=== PATIENT | male | born 1980 | race Caucasian/White ===

== ENCOUNTER 2024-09-26 18:02 | Emergency (ER) | payer BC, MEDICAID ==
[~2024-09-26] VITALS: Ht 167.6 cm; Wt 91.0 kg
[~2024-09-26 18:02] MED LIST: CIPR250S3 MT; IBUP-2029 MT; METR-354 MT; METR375C7 MT; MIRT-144 MT; PROT40 MT; TRAZ-251 MT
[2024-09-26 18:29] VITALS: BP 145/85; TEMP 36.7; O2SAT 97
[2024-09-26 18:30] VITALS: PULSE 86; RESP 18; O2SAT 99
[2024-09-26 20:10] LABS: BASOPHILS % 0.4 % (0.0-2.0); EOSINOPHILS % 0.7 % (0.0-5.0); HEMATOCRIT. 42.8 % (42.0-52.0); HEMOGLOBIN. 13.7 g/dL (14.0-18.0); LYMPHOCYTES % 12.2 % (20.0-50.0); MEAN CORPUSCULAR HEMOGLOBIN 27.8 pg (28.0-32.0); MEAN CORPUSCULAR HGB CONC 31.9 g/dL (31.0-37.0); MEAN PLATELET VOLUME 7.8 fl (7.4-10.4); MONOCYTES % 4.4 % (2.0-8.0); NEUTROPHILS % 82.3 % (40.0-76.0); PLATELET 265 x1000/uL (130-400); RED BLOOD CELL COUNT 4.92 mill/uL (4.7-6.1); RED CELL DISTRIBUTION WIDTH 14.3 % (11.6-14.6); WHITE BLOOD COUNT 13.3 x1000/uL (4.5-11.0)
[2024-09-26 20:17] LABS: CHLORIDE 104 mEq/L (98-107); POTASSIUM 3.6 mEq/L (3.5-5.1); SODIUM 142 mEq/L (136-145)
[2024-09-26 20:18] LABS: CALCIUM 9.6 mg/dL (8.7-10.4); CARBON DIOXIDE 27 mEq/L (21-32)
[2024-09-26 20:23] LABS: CREATININE 0.8 mg/dL (0.6-1.3); GLUCOSE 122 mg/dL (70-105); UREA NITROGEN BLOOD 7 mg/dL (9-23)
[2024-09-27] MEDS ORDERED: ONDA-239 PO (00:40)
[2024-09-27] MEDS ORDERED: IBUP-2029 MT (00:40)
[2024-09-27] MEDS ORDERED: AMOX1TAB16 MT (00:40)
[2024-09-27] MEDS ORDERED: TRAM50TA3 MT (00:44)
== END 2024-09-27 05:22 | disposition home or self-care (01) ==
LOC: ER 18:02
DX: K81.9 Cholecystitis, unspecified (principal); Z79.899 Other long term (current) drug therapy; Z79.1 Long term (current) use of non-steroidal anti-inflammatories (NSAID)
CPT/HCPCS: 36415; 80048; 85025; 99283